=== PATIENT | female | born 1975 | race Caucasian/White ===

== ENCOUNTER 2016-09-30 15:09 | Emergency (ER) | payer MEDICARE ==
[~2016-09-30 15:09] MED LIST: ALBUTEROL2.5 MG/3 M INH; AMBIEN10 M1 PO; ANTIVERT25 M1 PO; CIPRO500 M2 PO; CLINDAMYCIN HC300 M2 PO; CYMBALTA60 M1 PO; CYMBALTA60 MG PO; DOXYCYCLINE HY100 M3 PO; EXCEDRIN MIGRA1 EAC3 PO; GLUCOPHAGE500 M3 PO; HYDROCODON-ACE1 EA12 PO; HYDROCODON-ACE1 EA17 PO; IBUPROFEN800 M1 PO; KLONOPIN0.5 M1 PO; KLONOPIN0.5 MG PO; MACROBID 100 M100 M1 PO; MECLIZINE HCL25 M3 PO; PERCOCET 5-3251 EACH PO; PREDNISONE50 M1 PO; PROAIR HFA8.5 GM INH; RANITIDINE HCL150 M3 PO; REGLAN10 M2 PO; TRAZODONE HCL50 M1 PO; TRAZODONE50 MG PO; VESICARE5 M1 PO; VIBRAMYCIN100 M1 PO; VITAMIN D5000 UNI1 PO; VITAMIN D50000 UNIT PO; VITAMIN E1000 UNI1 PO; ZITHROMAX250MG Z-PAK PO; [UNRECOGNIZED DRUG - OTHER] PO
[2016-09-30] MEDS ORDERED: ASPIRIN EC325 M1 PO (15:52)
[2016-09-30 15:56] LABS: BASO % 0.2 % (0-2); EOS % 1.2 % (0-7); EOSINOPHIL ABSOLUTE COUNT 0.2 tho/cmm (0.0-0.7); HCT-HEMATOCRIT 44.5 % (34.0-49.0); HGB-HEMOGLOBIN 15.6 gm/dl (12.0-15.5); IMMATURE GRANULOCYTES ABSOLUTE 0.03 tho/cmm (0-0.03); IMMATURE GRANULOCYTES PERCENT 0.2 % (0-0.3); LYMPH % 23.7 % (20-45); LYMPH ABSOLUTE COUNT 3.2 tho/cmm (0.8-4.5); MCH (MEAN CORPUSCULAR HGB) 29.9 pg (28.0-32.0); MCHC MEAN CORPUSCULAR HGB CONC 35.1 % (32.0-36.0); MCV (MEAN CELL VOLUME) 85.4 fl (82.0-96.0); MEAN PLATELET VOLUME 11.7 cmc (9.4-12.4); MONO % 3.2 % (0-12); MONOCYTE ABSOLUTE COUNT 0.4 tho/cmm (0.0-1.2); NEUTROPHIL ABSOLUTE COUNT 9.7 tho/cmm (1.6-8.0); NEUTROPHIL-AUTOMATED 9.7 tho/cmm (1.6-8.0); NEUTROPHILS % 71.5 % (40-80); PLATELET COUNT 266 tho/cmm (150-450); RED BLOOD COUNT 5.21 mil/cmm (4.00-5.20); RED CELL DISTRIBUTION WIDTH 12.7 % (12.4-16.4); WHITE BLOOD COUNT 13.6 tho/cmm (4.0-10.0)
[2016-09-30 16:13] LABS: ALB/GLOB RATIO 1.1 (0.8-2.0); ALBUMIN 4.2 g/dl (3.5-5.0); ALKALINE PHOSPHATASE 94 U/L (33-138); ALT/SGPT 83 U/L (12-78); ANION GAP 13 mmol/L (0-20); AST/SGOT 72 U/L (10-40); BILIRUBIN,TOTAL 0.6 mg/dl (0-1.5); BLOOD UREA NITROGEN 8 mg/dl (6-24); CALCIUM 9.1 mg/dl (8.5-10.5); CARBON DIOXIDE-VENOUS 24 mmol/L (22-32); CHLORIDE 106 mmol/l (96-110); CREATININE 0.72 mg/dl (0.50-1.10); GLUCOSE 127 mg/dL (70-110); MAGNESIUM 1.9 mg/dl (1.8-2.6); POTASSIUM 3.2 mmol/L (3.7-5.1); SODIUM 140 mmol/L (135-145); eGFR VALUE FOR BLACK >90 mL/Min
[2016-09-30] MEDS ORDERED: NORCO 5-325 TA1 EACH PO (18:25)
[2017-01-25] MEDS ORDERED: PROMETHAZINE HC25 M3 PO (11:11)
[2017-01-25] MEDS ORDERED: CLONAZEPAM0.5 M2 PO (11:11)
== END 2016-09-30 19:06 ==
LOC: EDMED 15:09
PROVIDERS: Nurse Practitioner Family
DX: R07.89 Other chest pain (principal); R00.2 Palpitations; F41.9 Anxiety disorder, unspecified; E11.9 Type 2 diabetes mellitus without complications; F32.9 Major depressive disorder, single episode, unspecified; J45.909 Unspecified asthma, uncomplicated; F17.200 Nicotine dependence, unspecified, uncomplicated; Z88.8 Allergy status to other drugs, medicaments and biological substances; Z79.899 Other long term (current) drug therapy
CPT/HCPCS: J7030

== ENCOUNTER 2016-11-27 09:23 | Emergency (ER) | payer MEDICARE ==
[~2016-11-27 09:23] MED LIST changes: +ASPIRIN EC325 M1 PO; +NORCO 5-325 TA1 EACH PO
[2016-11-27] MEDS ORDERED: CYCLOBENZAPRINE5 M1 PO (09:44)
[2016-11-27] MEDS ORDERED: ULTRAM50 M1 PO ×2 (09:44→11:54)
[2017-01-25] MEDS ORDERED: CLONAZEPAM0.5 M2 PO (11:11)
[2017-01-25] MEDS ORDERED: PROMETHAZINE HC25 M3 PO (11:11)
== END 2016-11-27 12:04 ==
LOC: EDMED 09:23
DX: S70.01XA Contusion of right hip, initial encounter (principal); F41.9 Anxiety disorder, unspecified; F32.9 Major depressive disorder, single episode, unspecified; Z90.49 Acquired absence of other specified parts of digestive tract; Z90.89 Acquired absence of other organs; Z98.890 Other specified postprocedural states; Z88.8 Allergy status to other drugs, medicaments and biological substances; Z79.899 Other long term (current) drug therapy; F17.210 Nicotine dependence, cigarettes, uncomplicated; W17.89XA Other fall from one level to another, initial encounter
CPT/HCPCS: J1885

== ENCOUNTER 2017-02-22 17:29 | Emergency (ER) | payer MEDICARE ==
[~2017-02-22] VITALS: Ht 172.7 cm; Wt 113.4 kg
[~2017-02-22 17:29] MED LIST changes: +CLONAZEPAM0.5 M2 PO; +CYCLOBENZAPRINE5 M1 PO; +PROMETHAZINE HC25 M3 PO; +ULTRAM50 M1 PO
[2017-02-22] MEDS ORDERED: ZITHROMAX250 M1 PO (17:58)
[2017-02-22 18:25] LABS: BASO % 0.1 % (0-2); EOS % 1.7 % (0-7); EOSINOPHIL ABSOLUTE COUNT 0.2 tho/cmm (0.0-0.7); HCT-HEMATOCRIT 42.9 % (34.0-49.0); HGB-HEMOGLOBIN 14.9 gm/dl (12.0-15.5); IMMATURE GRANULOCYTES ABSOLUTE 0.02 tho/cmm (0-0.03); IMMATURE GRANULOCYTES PERCENT 0.1 % (0-0.3); LYMPH % 26.1 % (20-45); LYMPH ABSOLUTE COUNT 3.7 tho/cmm (0.8-4.5); MCH (MEAN CORPUSCULAR HGB) 29.6 pg (28.0-32.0); MCHC MEAN CORPUSCULAR HGB CONC 34.7 % (32.0-36.0); MCV (MEAN CELL VOLUME) 85.1 fl (82.0-96.0); MEAN PLATELET VOLUME 11.5 cmc (9.4-12.4); MONOCYTE ABSOLUTE COUNT 0.7 tho/cmm (0.0-1.2); NEUTROPHIL ABSOLUTE COUNT 9.4 tho/cmm (1.6-8.0); NEUTROPHIL-AUTOMATED 9.4 tho/cmm (1.6-8.0); PLATELET COUNT 262 tho/cmm (150-450); RED BLOOD COUNT 5.04 mil/cmm (4.00-5.20); RED CELL DISTRIBUTION WIDTH 12.7 % (12.4-16.4)
[2017-02-22 18:42] LABS: ALBUMIN 3.5 g/dl (3.5-5.0); ALKALINE PHOSPHATASE 76 U/L (33-138); ALT/SGPT 33 U/L (12-78); ANION GAP 12 mmol/L (0-20); AST/SGOT 19 U/L (10-40); BILIRUBIN,TOTAL 0.5 mg/dl (0-1.5); BLOOD UREA NITROGEN 9 mg/dl (6-24); CALCIUM 8.7 mg/dl (8.5-10.5); CARBON DIOXIDE-VENOUS 24 mmol/L (22-32); CHLORIDE 104 mmol/l (96-110); GLUCOSE 167 mg/dL (70-110); LIPASE 81 U/L (73-393); POTASSIUM 3.1 mmol/L (3.7-5.1); SODIUM 137 mmol/L (135-145); eGFR VALUE FOR BLACK >90 mL/Min
[2017-02-22 18:42] LABS: URINE APPEARANCE HAZY; URINE BILIRUBIN NEGATIVE (NEG); URINE BLOOD NEGATIVE (NEG); URINE COLOR PALE YELLOW; URINE GLUCOSE (UA) NEGATIVE (NEG); URINE KETONE NEGATIVE (NEG); URINE LEUKOCYTE ESTERASE NEGATIVE (NEG); URINE NITRITE NEGATIVE (NEG); URINE PH 6.5 (5.0-8.0); URINE PROTEIN NEGATIVE (NEG)
[2017-02-22] MEDS ORDERED: PRILOSEC OTC20 M1 PO (20:01)
== END 2017-02-22 20:08 ==
LOC: EDMED 17:29
PROVIDERS: Nurse Practitioner Family
DX: R11.2 Nausea with vomiting, unspecified (principal); R19.7 Diarrhea, unspecified; E11.9 Type 2 diabetes mellitus without complications; I10 Essential (primary) hypertension; F32.9 Major depressive disorder, single episode, unspecified; F17.200 Nicotine dependence, unspecified, uncomplicated; J45.909 Unspecified asthma, uncomplicated; Z90.710 Acquired absence of both cervix and uterus; Z98.890 Other specified postprocedural states; Z79.899 Other long term (current) drug therapy
CPT/HCPCS: J2765; J7030; Q9967